=== PATIENT | female | born 1985 | race Caucasian/White ===

== ENCOUNTER 2020-03-03 23:46 | Inpatient (IN) | payer OTHER, SELFPAY ==
[2020-03-03 23:57] VITALS: TEMP 36.6
[2020-03-04] VITALS (23 sets, daily range): BP systolic 96–165; BP diastolic 50–133; PULSE 77–105; RESP 16–18; TEMP 36.6–37.6; O2SAT 99–100; BMI 37.3
[2020-03-04] MEDS: CLINDAMYCIN 900 MG/NS 50 ML 900 MG/50 ML PIGGYBACK 50 MG IVPB ×2 (00:37→07:57)
[2020-03-04] MEDS: LACTATED RINGERS 1,000 ML 125 ML IV CONT (00:37)
--- NOTE | 2020-03-04 00:49 | LDADM ---
This patient, Minda Jacobs, was admitted to Labor/Delivery/Recovery 108 on 03/03/20 at 23:46. Plans for labor, pain management and were discussed with patient. Patient/family oriented to hospital policies and general routines including ID bracelet, bed and alarms, visiting hours, pain management, procedures, bathroom and other care routines, personal items, smoking policy, room service/diet and guest tray routines, security routines, and visiting hours. Patient/Family are encouraged to report perceived risks to care and to ask questions if they do not understand what they are told or what they should do. See OBIX for further documentation.
[2020-03-04 01:14] LABS: Basophils Percent Auto 0.3 % (0.2-1.2); Eosinophils Absolute Auto 0.2 K/mm3 (0-0.3); Hematocrit 37.7 % (37.0-47.0); Hemoglobin 12.4 g/dL (12.0-15.0); Immature Granulocyte Absolute 0.07 K/mm3 (0.00-0.031); Immature Granulocyte Percent A 0.6 % (0-0.5); Lymphocytes Absolute Auto 2.46 K/mm3 (0.9-3.2); Lymphocytes Percent Auto 20.3 % (18.3-44.2); Mean Corpuscular HGB Conc 32.9 g/dl (32-36); Mean Corpuscular Hemoglobin 30.7 pg (26-34); Mean Corpuscular Volume 93.3 fl (80-100); Mean Platelet Volume 11.8 fl (7.4-10.4); Monocytes Percent Auto 8.2 % (2.6-8.5); Neutrophils Absolute Auto 8.3 K/mm3 (1.3-6.7); Neutrophils Percent Auto 68.6 % (45.5-73.1); Platelet Count Result 208 k/mm3 (150-375); Red Blood Count 4.04 M/mm3 (4.2-5.4); White Blood Count 12.1 K/mm3 (4.5-10.0)
[2020-03-04] MEDS: OXYTOCIN 30 UNITS/NS 500 ML 30 UNITS/500 ML BAG 999 UNITS IV CONT (08:51)
--- NOTE | 2020-03-04 09:04 | WPDOBADMIT ---
Obstetrics - Admit Note Admission Note: Complete and pushingPrenatal record reviewed. No pertinent additions to the history and/or any subsequent changes in the physical findings that are not consistent with the expected course of the were found. Additions to the history and/or subsequent changes in the physical findings follow. None.
--- NOTE | 2020-03-04 09:05 | P.PCNOB_ITS ---
OB - Delivery Note Procedure Delivery date: 03/04/20 Procedure: events: Labor Augmentation Intrapartal events: None Delivery augmentation: pitocin Delivery monitor: external FHT and external uterine Route of delivery: Laceration description: Periurethral - 1st Degree Delivery repair: vicryl Estimated blood loss (mL): 100 Anesthesia type: Local Disposition: floor [place] Baby Date of : 03/04/20 Time of : 08:46 Weeks of gestation at delivery: 37 gender: Female Weight (pounds): 6 Weight (ounces): 8 presentation: vertex position: Right Occiput Anterior Placenta delivery description: Spontaneous cord vessel description: 3 Vessels score one minute: 6 score five minutes: 8
[2020-03-04] MEDS: OXYTOCIN 30 UNITS/NS 500 ML 30 UNITS/500 ML BAG 125 UNITS IV CONT (09:09)
--- NOTE | 2020-03-04 11:21 | PC.NURSE ---
PT arrived on unit via wheelchair accompanied by spouse and and taken to room 283. PT oriented to room and surrounding area. PT Introductions made and plan of care discussed per post , pain management, breast feeding, daily care activities. [place] packet reviewed and discussed. PT verbalized understanding of such care.
[2020-03-04] MEDS: DOCUSATE SODIUM 100 MG CAPSULE PO (17:11)
[2020-03-04] MEDS: LANOLIN (LANSINOH) 7.5 GM CREAM 1 APPLIC TOPICAL (17:12)
[2020-03-05 04:41] LABS: Hematocrit 30.4 % (37.0-47.0); Hemoglobin 10.1 g/dL (12.0-15.0)
[2020-03-05] MEDS: MULTIVIT/MIN/PREN/FOL AC/IRON TABLET 1 TAB PO (06:51)
[2020-03-05 06:53] LABS: Rapid Plasma Reagin Non-Reactive (NonReactive)
[2020-03-05 07:50] VITALS: BP 124/68; PULSE 79; RESP 18; TEMP 36.9; O2SAT 98
--- NOTE | 2020-03-05 09:30 | PC.NURSE ---
Consulted with patient, mother reports infant is sleepy and has been more eager with . Reviewed infant feeding cues, frequencies, duration of feedings, feeding elimination flow sheet, and signs of adequate intake. Demonstrated stimulation techniques to wake infant for feeding. Assisted with infant to breast. Reviewed positioning/alignment in cross cradle, holding breast in U hold and guided asymmetrical latch on. was able to latch correctly. Infant nursed eagerly with steady draws and occasional swallowing, for a short burst and would then pause and fall asleep. would easily awake and would latch and repeat. Suggested mother stimulate during entire feeding to keep awake and nursing effectively for her comfort and increased intake. Reviewed signs of a correct latch, effective nursing and suck swallow ratio. was able to maintain latch without discomfort to mother. Nipple care reviewed. Instructed mother to call out for RN assistance if she is unable to latch infant for feeding or she has discomfort with nursing. Instructed feeding should be initiated three hours from start of last feeding or if feeding cues are noted before. Mother voiced understanding of information shared.
--- NOTE | 2020-03-05 10:56 | PM.OBPNVD ---
OB - PN: Subj Subjective Date/time seen: 03/05/20 10:56 Patient comments: no complaints baby status: doing well OB - PN: Obj Data Labs CBC & Chem 7: 03/05/20 04:34 Labs: Laboratory Results - last 24 hr 03/04/20 03/05/20 01:50 04:34 Hgb 10.1 L Hct 30.4 L RPR Non-reactive OB - PN A/P Time Spent With Patient Time: Total time spent is greater than 50% in coordination of care (as documented) at patient's floor/unit and/or counseling patient: Exam GI: Auscultation: normal bowel sounds Other: firm fundus below umbilicus
--- NOTE | 2020-03-05 10:58 | PM.OBPRVD ---
OB - Delivery Note Procedure events: Labor Augmentation Intrapartal events: None Laceration description: Periurethral - 1st Degree Estimated blood loss (mL): 100 Anesthesia type: Local [place] Baby Date of : 03/04/20 Time of : 08:46 Weeks of gestation at delivery: 37 gender: Female Weight (pounds): 6 Weight (ounces): 8 presentation: vertex position: Right Occiput Anterior Placenta delivery description: Spontaneous score one minute: 6 score five minutes: 8
--- NOTE | 2020-03-05 11:08 | PM.OBPNVD ---
OB - PN: Subj Subjective Date/time seen: 03/05/20 11:08 Patient comments: no complaints baby status: doing well OB - PN: Obj Data Labs CBC & Chem 7: 03/05/20 04:34 Labs: Laboratory Results - last 24 hr 03/04/20 03/05/20 01:50 04:34 Hgb 10.1 L Hct 30.4 L RPR Non-reactive OB - PN A/P Assessment and Plan (1) (normal spontaneous vaginal delivery): Code(s): O80 - Encounter for full-term uncomplicated delivery Status: Acute Assessment and Plan: continue with pp care. Time Spent With Patient Time: Total time spent is greater than 50% in coordination of care (as documented) at patient's floor/unit and/or counseling patient: Exam GI: Other: ff below umbilicus
--- NOTE | 2020-03-05 12:40 | PC.NURSE ---
Mother called out for assist with feeding. Demonstrated stimulation techniques to wake for feeding. Assisted with to breast. Reviewed positioning/alignment, holding breast and asymmetrical latch on. Infant was able to latch correctly. Infant would latch and make a few sucks and return to sleep. Attempt for 15 minutes without a successful latch. Suggested a blood glucose on infant at this time.
--- NOTE | 2020-03-05 13:00 | PC.NURSE ---
Breast pump provided due to ineffective feeding. . Instructions given on breast pump care and usage, pumping schedule, nipple care, and collection and storage of breast milk. Encouraged [id number], breast massage and manual expression to stimulate supply. Assessed patient for correct flange size, placement and draw. Patient verbalizes and demonstrates understanding of instructions.
[2020-03-05 19:30] VITALS: BP 126/64; PULSE 92; RESP 16; TEMP 36.8; O2SAT 99
--- NOTE | 2020-03-05 20:00 | PC.NURSE ---
Patient viewed the discharge video Mother & Baby Care, The First Two Weeks . Patient was given the opportunity and encouraged to ask questions. Patient verbalized understanding of information shared and has been given the mother/baby guide for home reference.
[2020-03-06 08:10] VITALS: BP 126/63; PULSE 76; RESP 18; TEMP 37.3; O2SAT 99
--- NOTE | 2020-03-06 08:31 | PM.OBPNVD ---
OB - PN: Subj Subjective Date/time seen: 03/06/20 08:31 Patient comments: no complaints, pain well controlled, tolerating diet and flatus present baby status: doing well and nursing well OB - PN: Obj Data Labs CBC & Chem 7: 03/05/20 04:34 OB - PN A/P Plan day: 2 Plan: routine care and discharge home Time Spent With Patient Time: Total time spent is greater than 50% in coordination of care (as documented) at patient's floor/unit and/or counseling patient: Time with patient: less than 15 minutes Review of Systems Constitutional: Constitutional: Reports no additional constitutional complaints Cardiovascular: Cardiovascular: Reports no additional cardiovascular complaints Respiratory: Respiratory: Reports no additional respiratory complaints Gastrointestinal: Gastrointestinal: Reports no additional gastrointestinal complaints Genitourinary: Genitourinary: Reports no additional female genitourinary complaints Exam Const: General: comfortable, no acute distress, alert and awake Resp: Effort & Inspection: normal respiratory effort Auscultation: clear to auscultation bilaterally Cardio: Rate: regular rate GI: Auscultation: normal bowel sounds Other: Fundus firm below umbilicus
--- NOTE | 2020-03-06 08:32 | PM.OBDSVD ---
DS: Diagnosis Admitting Diagnosis Admitting Diagnosis: Encounter for full-term uncomplicated delivery OB - DS: Summary OB Procedures : None OB Procedures Intrapartum: Spontaneous Vag Delivery OB Procedures: : None Peripartum Data Delivery Method: Natural Vaginal Time Spent with Patient Time attestation: Total time spent providing and/or coordinating discharge services: Discharge Plan Discharge Attending physician on discharge: Stefan Hoff Discharging Clinician: Tayler Cardenas Anticipated Discharge Date/Time: 03/06/20 08:33 Patient Disposition: Home, Self-Care Activity: may shower and as tolerated Diet: regular Patient Instructions: Antibiotic Form Stand Alone Forms: General Discharge Information Follow-up/Referrals: Stefan Hoff MD [Physician] - Discharge Medications: New polysaccharide iron complex 150 mg iron Capsule 150 mg PO BIDWM Qty: 60 RF: 0 docusate sodium 100 mg Capsule 100 mg PO BID PRN (Reason: Constipation) Qty: 60 RF: 0 ibuprofen 600 mg Tablet 600 mg PO Q6H PRN (Reason: Cramping) Qty: 60 RF: 0 Continued ferrous sulfate 325 mg (65 mg iron) Tablet 325 mg PO BID RF: 0 ergocalciferol (vitamin D2) [Vitamin D2] 1,250 mcg (50,000 unit) Capsule 50,000 unit PO WEEKLY RF: 0 Pepcid Complete 10-800-165 mg Tablet,Chewable 1 tablet PO DAILY PRN (Reason: Acid Reflux) RF: 0 PNV cmb#95-ferrous fumarate-FA [] 28 mg iron- 800 mcg Tablet 1 tablet PO DAILY RF: 0 Date of admission: 03/03/20 23:46 Primary Care Provider: Nicolás,Idris Chavez Admitting Provider: Stefan Hoff Attending physician on admission: Stefan Hoff
[2020-03-06] MEDS: DOCUSATE SODIUM 100 MG CAPSULE PO ×2 (11:21→11:37)
--- NOTE | 2020-03-07 10:45 | PC.NURSE ---
Mother is able to independently latch infant with appropriate positioning/alignment using the nipple shield. She denies any nipple discomfort, is feeding as required and waking to feed if needed. has had at least 8 effective feedings in the past 24 hours, and is currently meeting outcomes for weight, output, jaundice and feeding frequencies. Mother is supplementing after all breastfeedings. Mother states she feels confident to continue effective /supplementation at home. Mother has a double electric pump for home use and will continue to pump after each feeding until her milk supply is well established. Mother states she will offer any expressed milk to infant as part of supplement. Discussed milk supply and how PCOS and breast asymmetry may affect mother's milk supply. Discussed when/if to wean from supplementation Reviewed transition to breast milk, signs of adequate intake, and engorgement/relief. Instructed to call ICP if intake/output less than required. Reviewed regular medications mother is taking. Information provided per [place]. Reviewed community resources on the [facility] website and in the Mom/Baby guide. Information on outpatient services provided. Mother has no further questions at this time.
[2020-03-08 09:43] VITALS: BP 146/84; PULSE 68; RESP 22; TEMP 36.9
== END 2020-03-06 18:00 | disposition home or self-care (01) | DRG 807 ==
LOC: ANHLDR 03-04 12:13 → ANHOB2 03-04 12:29
PROVIDERS: Admitting Provider Obstetrics & Gynecology; PCP Family Medicine; Visit Provider Obstetrics & Gynecology
DX: O99.824 Streptococcus B carrier state complicating childbirth (principal); Z37.0 Single live birth; Z3A.37 37 weeks gestation of pregnancy; O70.0 First degree perineal laceration during delivery
CPT/HCPCS: 36415; 85014; 85018; 85025; 85055; 86592; 86850; 86900; 86901; A9270; J2590; J3010; J7120

== ENCOUNTER → 2022-05-19 13:47 | Outpatient (CLI) | payer OTHER, SELFPAY ==
--- NOTE | ~2022-05-19 | US_ITS ---
EXAMINATION: US OB transvaginal DATE: 05/19/2022 14:10 INDICATION: Gestational dating TECHNIQUE: Real-time transabdominal and transvaginal obstetric ultrasound. FINDINGS: Ultrasound dated 06/07/2018 The uterus measures 9.2 x 5 x 6.3 cm. There is an intrauterine gestational sac, with pole ident ified. The crown rump length measures 1.47 cm, which correlates with a estimated gestational age of 7 weeks 6 days. heart tones are identified measuring 146 BPM. There is a 1.9 cm corpus luteal cyst of the right ovary. IMPRESSION: 1. SL IUP with an EGA of 7 weeks, 6 days (EDC by current ultrasound of 12/30/2022). 2: Corpus luteal cyst of the right ovary measuring 1.9 cm. Reviewed, dictated and finalized at location A. IMPRESSION: 1. SL IUP with an EGA of 7 weeks, 6 days (EDC by current ultrasound of ). 2: Corpus luteal cyst of the right ovary measuring 1.9 cm.
== END ==
PROVIDERS: PCP Family Medicine; Visit Provider Advanced Practice Midwife
DX: O34.81 Maternal care for other abnormalities of pelvic organs, first trimester (principal); Z3A.01 Less than 8 weeks gestation of pregnancy; N83.201 Unspecified ovarian cyst, right side
CPT/HCPCS: 76817

== ENCOUNTER 2022-12-15 12:38 | Observation (INO) | payer OTHER, SELFPAY ==
[2022-12-15 13:30] VITALS: BMI 35.4
--- NOTE | 2022-12-23 13:48 | PM.OBTRLD ---
OB - Triage/Final Diagnosis Visit Information Reason for evaluation: threatened labor Comments/Additional reasons for admission: I have assessed the risk for this patient, Minda Jacobs, and determined that she would benefit from observation care.
== END 2022-12-15 15:20 | disposition home or self-care (01) ==
PROVIDERS: Admitting Provider Obstetrics & Gynecology Gynecology; Visit Provider Advanced Practice Midwife
DX: O47.1 False labor at or after 37 completed weeks of gestation (principal); Z3A.38 38 weeks gestation of pregnancy
CPT/HCPCS: 84112; G0378; G0379

== ENCOUNTER 2022-12-22 17:12 | Observation (INO) | payer OTHER, SELFPAY ==
[2022-12-22 17:15] VITALS: PULSE 80; O2SAT 96
[2022-12-22 17:16] VITALS: BP 101/60; PULSE 79
[2022-12-22 17:20] VITALS: PULSE 82; O2SAT 95
--- NOTE | 2022-12-23 13:46 | PM.OBTRLD ---
OB - Triage/Final Diagnosis Visit Information Reason for evaluation: threatened labor Comments/Additional reasons for admission: I have assessed the risk for this patient, Minda Jacobs, and determined that she would benefit from observation care. Evaluation Vital signs: Vital Signs - 24 hr 12/22/22 17:15 12/22/22 17:16 12/22/22 17:20 Pulse Rate 79 Blood Pressure 101/60 Pulse Oximetry 96 95
== END 2022-12-22 17:35 | disposition home or self-care (01) ==
PROVIDERS: Admitting Provider Advanced Practice Midwife; Visit Provider Advanced Practice Midwife
DX: O47.9 False labor, unspecified (principal); Z3A.00 Weeks of gestation of pregnancy not specified

== ENCOUNTER 2022-12-29 17:51 | Inpatient (IN) | payer OTHER, SELFPAY ==
[2022-12-29] VITALS (14 sets, daily range): BP systolic 91–139; BP diastolic 50–101; PULSE 84–100; BMI 36.1
[2022-12-29 18:47] LABS: Basophils Percent Auto 0.4 % (0.2-1.2); Eosinophils Absolute Auto 0.2 K/mm3 (0-0.3); Eosinophils Percent Auto 1.6 % (0-4.4); Hematocrit 36.5 % (37.0-47.0); Hemoglobin 12.2 g/dL (12.0-15.0); Immature Granulocyte Absolute 0.04 K/mm3 (0.00-0.031); Immature Granulocyte Percent A 0.4 % (0-0.5); Lymphocytes Absolute Auto 1.93 K/mm3 (0.9-3.2); Lymphocytes Percent Auto 18.8 % (18.3-44.2); Mean Corpuscular HGB Conc 33.4 g/dl (32-36); Mean Corpuscular Hemoglobin 30.6 pg (26-34); Mean Corpuscular Volume 91.5 fl (80-100); Monocytes Absolute Auto 0.6 K/mm3 (0.1-0.6); Monocytes Percent Auto 6.1 % (2.6-8.5); Neutrophils Absolute Auto 7.5 K/mm3 (1.3-6.7); Neutrophils Percent Auto 72.7 % (45.5-73.1); Platelet Count Result 206 k/mm3 (150-375); Red Blood Count 3.99 M/mm3 (4.2-5.4); Red Cell Distribution Width 13.5 % (11.5-14.5); White Blood Count 10.3 K/mm3 (4.5-10.0)
--- NOTE | 2022-12-29 20:03 | LDADM ---
This patient, Minda Jacobs, was admitted to Labor/Delivery/Recovery 105 on 12/29/22 at 17:51. Plans for labor, pain management and were discussed with patient. Patient/family oriented to hospital policies and general routines including ID bracelet, bed and alarms, visiting hours, pain management, procedures, bathroom and other care routines, personal items, smoking policy, room service/diet and guest tray routines, infant security routines, and visiting hours. Patient/Family are encouraged to report perceived risks to care and to ask questions if they do not understand what they are told or what they should do. See OBIX for further documentation.
[2022-12-29] MEDS: LACTATED RINGERS 1,000 ML 125 ML IV CONT (22:54)
[2022-12-29] MEDS: OXYTOCIN 30 UNITS/NS 500 ML 30 UNITS/500 ML BAG IV CONT (22:54)
[2022-12-30] VITALS (29 sets, daily range): BP systolic 86–152; BP diastolic 45–128; PULSE 72–107; RESP 16–18; TEMP 36.6–37.3; O2SAT 98–100
[2022-12-30] MEDS: fentaNYL CITRATE INJ (*CRX) 100 MCG/2 ML VIAL 50 MCG IV PUSH (00:30)
--- NOTE | 2022-12-30 02:18 | WPDOBADMIT ---
Obstetrics - Admit Note Admission Note: record reviewed. No pertinent additions to the history and/or any subsequent changes in the physical findings that are not consistent with the expected course of the were found. Additions to the history and/or subsequent changes in the physical findings follow. Pt arrived to L&D with [facility] at term.
--- NOTE | 2022-12-30 02:19 | PM.OBPNLAB ---
Pain Control Date/time seen: 12/30/22 02:19 Pain control: tolerating well Comments: Minda breathing through contractions. Repositioning self PRN. Pelvic Exam Comments: last exam by RN was 8-9 cm. Contractions Monitor mode: External Contraction frequency: 3 Contraction pattern: Regular Contraction intensity: Strong/Firm Status status: Category l Assessment and Plan Pitocin rate (mU/min): 4 Assessment: active labor Plan: continuous present management Comments: CNM at bedside. Pt progressing without issue. FHTs Cat 1. Partner present. Anticipate vaginal .
--- NOTE | 2022-12-30 02:21 | PM.OBPRVD ---
OB - Delivery Note Procedure Delivery date: 12/30/22 Induction method: None Delivery augmentation: Pitocin Delivery monitor: External FHT and External Uterine [place] Baby Date of : 12/30/22 Weeks of gestation at delivery: 40
--- NOTE | 2022-12-30 02:22 | PM.OBDSVD ---
DS: Admitting Diagnosis Discharge Date 12/31/22 Admitting Diagnosis 1. 37 y.o. at 40 weeks 3 days. 2. AMA 3. GERD 4. Resolved IUGR 5. 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 Mood is pleasant and cooperative. Urinating without difficulty. Denies passing any large clots. Perineum with minimal edema. Fundus firm and below umbilicus. Const: General: cooperative, healthy appearing, no acute distress and alert Orientation/consciousness: patient oriented x3 Limitations: no limitations Resp: Effort & Inspection: normal respiratory effort Auscultation: clear to auscultation bilaterally Cardio: Rate: regular rate GI: Inspection: normal to inspection Neuro: General: patient oriented x3 Extrem: General: normal to inspection Psych: Appearance: grossly normal Mental Status: mental status grossly normal Affect: normal affect Thought process: Normal thought process present DS: Data Data Completed and Pending Labs on day of discharge: Labs from last 24 hours 12/29/22 12/29/22 12/29/22 18:39 18:39 18:39 WBC 10.3 H RBC 3.99 L Hgb 12.2 Hct 36.5 L MCV 91.5 MCH 30.6 MCHC 33.4 RDW 13.5 Plt Count 206 MPV 10.0 Immature Gran % (Auto) 0.4 Neut % (Auto) 72.7 Lymph % (Auto) 18.8 [place] % (Auto) 6.1 Eos % (Auto) 1.6 Baso % (Auto) 0.4 Lymph # (Auto) 1.93 [place] # (Auto) 0.6 Eos # (Auto) 0.2 Baso # (Auto) 0.0 Abs Immat Gran (auto) 0.04 H Absolute Neuts (auto) 7.5 H Absolute Nucleated RBC 0.0 Nucleated RBC % 0.0 RPR Pending Blood Type A Positive Antibody Screen Negative Discharge Plan Discharge Attending physician on discharge: Tiffanie Vance Discharging Clinician: Amy Melo Patient Disposition: Home, Self-Care Activity: no shower and may shower Diet: regular Discharge Instructions: Education: Mom and Baby Guide Given to: Mother Follow-Up: Call your delivering provider's office for an appointment to be seen in: 6 Weeks Mom and baby should come to the [facility] for the follow-up appointment. Appointment Date/Time: January 02, 2023 at 1:30 pm What to expect at your follow-up visit: Blood Pressure Check Physical Assessment Call [phone] if you are unable to keep your appointment time. BREAST CARE: * Wear a snug supportive bra. * For engorgement discomfort: Breast Feeding: * Apply warm moist washcloths * Express milk as needed to relieve engorgement * Wear loose clothing Bottle Feeding: * May apply ice packs * For sore nipples: * Identify correct latch-on * Apply warm moist washcloths before and after nursing * Air dry nipples after nursing * May apply Lansinoh cream to nipples EPISIOTOMY/PERINEAL CARE: * Until bleeding stops, use your gildardo bottle after urinating * Change your pad frequently throughout the day * You may take sitz baths several times a day (fill your bathtub with warm water and soak for 20 minutes.) Do NOT bathe in the water * No tub baths until seen by your physician - You may shower ACTIVITY: * Rest as much as possible. * Do not exercise or lift anything heavier than your baby (such as laundry or other children.) * Avoid stairs or drivi
--- NOTE | 2022-12-30 05:38 | PM.OBPRVD ---
OB - Delivery Note Procedure Delivery date: 12/30/22 Procedure: Induction method: None Delivery augmentation: Pitocin Delivery monitor: External FHT and External Uterine Route of delivery: Episiotomy description: None Laceration Description: Superficial Specimen: No Quantitative Blood Loss (ml): 150 Anesthesia type: None Disposition: Floor Complications: Shoulder dystocia, retained placenta Narrative: Patient admitted after spontaneous rupture of membranes. Due to lack of cervical change, Pitocin was started. She progressed to complete dilation and pushed with contractions. There was spontaneous delivery of the head however there was no restitution. A shoulder dystocia was identified and patient assisted to [place] position. There was still no restitution or descent in this position and suprapubic pressure was applied. After this maneuver (50 seconds) there was descent and delivery of the anterior ( left) shoulder. The 's right arm was then extended and removed from the vagina. There was no further descent of the fetus at this point and gentle traction was applied underneath bilateral axilla. The remainder of the was then delivered and placed on the maternal abdomen. After 1 minute of life the cord was doubly clamped and cut. Cord blood and cord gases were obtained as well as a cord segment. After 30 minutes a retained placenta was diagnosed. Discussed options for intervention at this time and patient required to stand and allow gravity to assist. Patient assisted to standing position and after approximately 5 minutes the placenta was delivered after maternal expulsive effort. A superficial left labial laceration was notified as well as a 1st degree vaginal laceration. these were both hemostatic and the patient denied repair. All delivery counts were correct. There was excellent hemostasis Baby Date of : 12/30/22 Time of : 04:48 Weeks of gestation at delivery: 40 gender: Male Weight (pounds): 8 Weight (ounces): 12 presentation: vertex position: Right Occiput Anterior Placenta delivery description: Spontaneous (Retained. Pt allowed to stand at bedside with assistance for a few minutes. Placenta delivered with expulsive efforts. ) Cord Vessel Description: 3 Vessels score one minute: 7 score five minutes: 9
[2022-12-30] MEDS: WITCH HAZEL 40 PADS 1 PAD TOPICAL (07:28)
[2022-12-30] MEDS: BENZOCAINE 20% AER SPR (*SP) 56 GM CAN 1 SPRAY TOPICAL (07:28)
--- NOTE | 2022-12-30 07:51 | OBPPTRN ---
Patient transferred to post room #278 via wheelchair. Support person present. Oriented to unit, room, information board, rooming in, admission packet and security measures. Patient verbalizes understanding.
[2022-12-30] MEDS: MULTIVIT/MIN/PREN/FOL AC/IRON TABLET 1 TAB PO (08:42)
[2022-12-30] MEDS: DOCUSATE SODIUM 100 MG CAPSULE PO ×2 (08:42→17:26)
[2022-12-30 10:35] LABS: Rapid Plasma Reagin Non-Reactive (NonReactive)
--- NOTE | 2022-12-30 15:53 | PC.NURSE ---
[id number] Introductions were made, then consulted with patient to assess needs related to . Mother led the conversation with her?plans to feed?her infant and the?experience so far. Resources provided for inpatient and outpatient services with name and use of the call light for assistance. Mother voiced understanding of information and consents to a assessment. Mother demonstrates her confidence and knowledge with holding and latching her . She states she has a history of low milk production. observations visualized are the shaved face where a savage would be and tubular breast. Mother latches infant effectively with no pain and no misshaped nipples. Infant doesn't demonstrate swallowing. Mother has been cluster feeding her 8lb-12oz infant often. Used the pie demonstration to review education on how to watch for good output/intake. Mother voiced understanding of calling for assistance if there's pain with latching, infant doesn't latch to breastfeed or is inconsolable. Reported to the primary RN.
[2022-12-31 04:30] VITALS: BP 119/66; PULSE 75; RESP 18; TEMP 36.3; O2SAT 100
[2022-12-31] MEDS: IBUPROFEN 600 MG TABLET PO (04:51)
[2022-12-31 05:28] LABS: Hematocrit 32.2 % (37.0-47.0); Hemoglobin 10.5 g/dL (12.0-15.0)
[2022-12-31 07:20] VITALS: BP 115/63; PULSE 67; RESP 16; TEMP 36.9; O2SAT 98
--- NOTE | 2022-12-31 07:54 | P.PNOB_ITS ---
OB - PN: Subj Subjective Date/time seen: 12/31/22 07:54 Patient comments: no complaints and pain well controlled baby status: doing well and nursing well [place] feeding status: exclusively breast feeding OB - PN: Obj Data Labs 12/31/22 04:47 Labs: Laboratory Results - last 24 hr 12/29/22 12/31/22 18:39 04:47 Hgb 10.5 L Hct 32.2 L RPR Non-reactive OB - PN A/P Plan day: 1 Comments: She is considering discharge home today. Will work with on this morning. Time Spent With Patient Time: Total time spent is greater than 50% in coordination of care (as documented) at patient's floor/unit and/or counseling patient: Review of Systems Review of Systems: All systems reviewed & are unremarkable except as noted in HPI and below Exam Narrative: Alert and oriented. Mood is pleasant and cooperative. Urinating without difficulty. Denies passing any large clots. Perineum with minimal edema. Fundus firm and below umbilicus. Const: General: cooperative, healthy appearing, no acute distress and alert Orientation/consciousness: patient oriented x3 Limitations: no limitations Resp: Effort & Inspection: normal respiratory effort Auscultation: clear to auscultation bilaterally Cardio: Rate: regular rate GI: Inspection: normal to inspection Neuro: General: patient oriented x3 Extrem: General: normal to inspection Psych: Appearance: grossly normal Mental Status: mental status grossly normal Affect: normal affect Thought process: Normal thought process present
[2022-12-31] MEDS: DOCUSATE SODIUM 100 MG CAPSULE PO (09:21)
[2022-12-31] MEDS: MULTIVIT/MIN/PREN/FOL AC/IRON TABLET 1 TAB PO (09:22)
[2022-12-31] MEDS: LANOLIN (LANSINOH) 7.5 GM CREAM 1 APPLIC TOPICAL (09:22)
--- NOTE | 2022-12-31 12:16 | PC.NURSE ---
[id number] Consulted with mother to assess how is going. Mother states she just completed a with no pain and will call for the next feeding. [id number] Consulted with mother after being requested for assistance with latching. Upon entering the room mother is on the bed with infant swaddled. Mother attempted to latch infant and infant is sleepy and reluctant. RN encouraged mother to use massage touch, burping, position change and skin to skin to stimulate infant to wake for feeding. Once infant was awake demonstrating feeding cues, then mother latched infant to the right breast supporting with the sandwich hold and gently compressing as her infant breast feeds with denying pain. Mother led the conversation with her experience and plan to feed her infant so far and her ability to independently latch infant optimally without discomfort. Reminded parents to use good handwashing technique to prevent infection. Mother is feeding appropriately for growth of and understands stimulating to eat if needed. has had 8-11 feedings in the last 24 hours meets the outcomes for weight, output and jaundice at this time. Mother states she is confident to continue effectively her at home, when to call for assistance and denies any additional assistance or education at this time. Reinforced understanding of milk production, transition of milk, signs of adequate intake, transition of stool, prevention/relief of engorgement, responsive watching for feeding cues, the different methods of stimulating to breastfeed 2-3 hours after the start of the last feeding, community resources, medication information reviewed per [facility] and when to call a provider using the resource of the mom and baby guide/[facility] website. Mother voiced understanding of the education shared. Reported to the primary RN.
[2023-01-02 14:02] VITALS: BP 117/68; PULSE 72; RESP 18; TEMP 36.7; O2SAT 100
== END 2022-12-31 13:42 | disposition home or self-care (01) | DRG 807 ==
LOC: ANHLDR 12-30 02:25 → ANHOB2 12-30 07:56
PROVIDERS: Admitting Provider Advanced Practice Midwife; PCP Advanced Practice Midwife; Visit Provider Obstetrics & Gynecology Gynecology
DX: O66.0 Obstructed labor due to shoulder dystocia (principal); Z37.0 Single live birth; O70.0 First degree perineal laceration during delivery; Z3A.40 40 weeks gestation of pregnancy; O73.0 Retained placenta without hemorrhage
CPT/HCPCS: 36415; 84112; 85014; 85018; 85025; 86592; 86850; 86900; 86901; A9270; J2590; J3010; J7120